=== PATIENT | female | born 1990 | race Two or more races ===

== ENCOUNTER 2020-03-24 06:06 | Emergency (ER) | payer MEDICAID ==
[~2020-03-24] VITALS: Ht 157.5 cm; Wt 68.3 kg
--- NOTE | 2020-03-24 07:16 | NUR ---
PT AMBULATORY TO ROOM 14 W/ C/O FEELING LIKE HER EYES HURT AND ARE SWELLING, HER SKIN LOOKS DIFFERENT AND IS UGLY, THINKS SHE HAS DM SECONDARY TO NUMBNESS TO BOTH LEGS AT TIMES. PT RESTING ON GURNEY. NADN. MONITORS APPLIED. NADN. WARM BLANKET PROVIDED. PT'S SKIN WNL. NO BRUISING NOTED.
[2020-03-24 07:38] LABS: BASOPHILS # (AUTO) 0.02 x10^3/uL (0-0.1); BASOPHILS % (AUTO) 0 % (0-1); EOSINOPHILS # (AUTO) 0.09 x10^3/uL (0-0.4); EOSINOPHILS % (AUTO) 1 % (1-7); LYMPHOCYTES # (AUTO) 1.35 x10^3/uL (1-3.4); LYMPHOCYTES % (AUTO) 21 % (22-44); MD NO; MEAN CORPUSCULAR HEMOGLOBIN 29.7 pg (27.0-34.8); MEAN CORPUSCULAR HGB CONC 33.2 g/dL (32.4-35.8); MEAN CORPUSCULAR VOLUME 89.3 fL (80-100); MEAN PLATELET VOLUME 9.7 fL (7.4-10.4); MONOCYTES # (AUTO) 0.35 x10^3/uL (0.2-0.8); MONOCYTES % (AUTO) 5 % (2-9); NEUTROPHILS # (AUTO) 4.73 x10^3/uL (1.8-6.8); NEUTROPHILS % (AUTO) 72 % (42-75); PLATELET COUNT 232 x10^3/uL (130-400); RED BLOOD COUNT 4.49 x10^6/uL (3.82-5.3); RED CELL DISTRIBUTION WIDTH 14.4 % (9.6-15.2)
[2020-03-24 07:48] LABS: ALANINE AMINOTRANSFERASE 26 U/L (12-78); ALBUMIN 3.5 g/dL (3.4-5.0); ANION GAP 6 mmol/L (5-15); CALCIUM 8.3 mg/dL (8.5-10.1); CHLORIDE 108 mmol/L (98-107); CREATININE 0.58 mg/dL (0.55-1.02); INTERNATIONAL NORMALIZED RATIO 0.98 (0.93-1.1); PROTHROMBIN TIME 10.4 Seconds (9.6-11.5)
[2020-03-24 07:50] LABS: ALKALINE PHOSPHATASE 71 U/L (45-117); BILIRUBIN,TOTAL 0.2 mg/dL (0.2-1.0); TOTAL PROTEIN 6.8 g/dL (6.4-8.2)
--- NOTE | 2020-03-24 08:24 | NUR ---
PT CHART REVIEWED AND PLACED FOR RECHECK.
[2020-03-24 08:39] VITALS: BP 106/64
== END 2020-03-24 08:40 | disposition home or self-care (01) ==
LOC: ED 07:16
DX: M79.81 Nontraumatic hematoma of soft tissue (principal); R20.0 Anesthesia of skin
CPT/HCPCS: 36415; 80053; 82962; 83690; 85025; 85610; 85730; 99283

== ENCOUNTER 2020-05-19 05:20 | Emergency (ER) | payer MEDICAID ==
[~2020-05-19] VITALS: Ht 157.5 cm; Wt 64.8 kg
[2020-05-19 05:23] VITALS: BP 100/59
--- NOTE | 2020-05-19 06:57 | NUR ---
Pt bedside report to Ney arthur.
== END 2020-05-19 07:05 | disposition home or self-care (01) ==
LOC: ED 06:42
DX: R05 Cough (principal); R07.89 Other chest pain; R50.9 Fever, unspecified; Z87.891 Personal history of nicotine dependence
CPT/HCPCS: 71045; 99283

== ENCOUNTER 2020-06-02 15:13 | Emergency (ER) | payer MEDICAID ==
--- NOTE | 2020-06-02 15:53 | NUR ---
hansa called for the third time, not in lobby. Screener stated pt took off armband and left
== END 2020-06-02 16:16 ==
LOC: ED 16:10
DX: Z53.21 Procedure and treatment not carried out due to patient leaving prior to being seen by health care provider (principal)

== ENCOUNTER 2020-06-04 14:18 | Emergency (ER) | payer MEDICAID ==
[~2020-06-04] VITALS: Ht 157.5 cm; Wt 63.5 kg
[2020-06-04 14:21] VITALS: BP 157/73
--- NOTE | 2020-06-04 16:12 | NUR ---
ALL RESULTS ARE BACK AT THIS TIME. CHART UP FOR RECHECK.
== END 2020-06-04 17:27 | disposition home or self-care (01) ==
LOC: ED 15:24
DX: R07.9 Chest pain, unspecified (principal); M79.652 Pain in left thigh; M79.651 Pain in right thigh; Y08.89XA Assault by other specified means, initial encounter; Y93.89 Activity, other specified; Y92.098 Other place in other non-institutional residence as the place of occurrence of the external cause; Y99.8 Other external cause status
CPT/HCPCS: 71046; 99283

== ENCOUNTER 2020-06-17 11:25 | Emergency (ER) | payer MEDICAID ==
[~2020-06-17] VITALS: Ht 157.5 cm; Wt 61.8 kg
[2020-06-17 11:28] VITALS: BP 136/75
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
== END 2020-06-17 12:29 | disposition home or self-care (01) ==
LOC: ED 11:51
DX: S79.922A Unspecified injury of left thigh, initial encounter (principal); S79.921A Unspecified injury of right thigh, initial encounter; Y08.89XA Assault by other specified means, initial encounter; Y93.89 Activity, other specified; Y92.098 Other place in other non-institutional residence as the place of occurrence of the external cause; Y99.8 Other external cause status
CPT/HCPCS: 99281

== ENCOUNTER 2020-08-22 09:48 | Emergency (ER) | payer MEDICAID ==
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
[2020-08-22] MEDS ORDERED: METH80VI SQ (10:22)
[2020-08-22 10:28] VITALS: BP 113/68
--- NOTE | 2020-08-22 10:28 | NUR ---
DRUG SAFETY ASSOCIATE BED AND PELVIC CART TO ROOM.
[2020-08-22 10:44] LABS: MICROSCOPIC NOT IND
[2020-08-22 11:44] LABS: HCG UR SG 1.011 (1.003-1.030)
[2020-08-22 11:45] LABS: CLUE CELLS NONE SEEN (NONE SEEN); WET PREP WBCS MANY (FEW)
[2020-08-22] MEDS ORDERED: LIDOCAINE-MPF 1%, 2ML ONE (11:56)
[2020-08-22] MEDS ORDERED: CEFTRIAXONE 250 MG ONE (11:56)
[2020-08-22] MEDS ORDERED: AZITHROMYCIN 250 MG TABLET ONE (11:57)
[2020-08-22] MEDS ORDERED: AZITHROMYCIN 500 MG TABLET PO ONE (12:00)
[2020-08-22] MEDS ORDERED: CEFTRIAXONE 250 MG IM ONE (12:00)
[2020-08-22] MEDS: PLEASE ENTER ALLERGIES MC SCH ×2 (12:00→12:09)
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
== END 2020-08-22 12:22 | disposition home or self-care (01) ==
LOC: ED 10:49
DX: A56.02 Chlamydial vulvovaginitis (principal); A54.02 Gonococcal vulvovaginitis, unspecified; Z87.891 Personal history of nicotine dependence
CPT/HCPCS: 81003; 81025; 87210; 87491; 87591; 87808; 96372; 99284; J0696; 99283